=== PATIENT | male | born 1955 | race Caucasian/White ===

== ENCOUNTER 2017-06-18 21:35 | Inpatient (IN) | payer OTHER ==
[~2017-06-18] VITALS: Ht 175.3 cm; Wt 137.0 kg
--- NOTE | ~2017-06-18 | EKG ---
PATIENT: BE MUNOZ UNIT #: [id number] Ventricular Rate: 88 BPM Atrial Rate: 88 BPM P-R Interval: 166 ms QRS Duration: 104 ms Q-T Interval: 378 ms QTC Calculation(Bezet): 457 ms P [place]: 46 degrees Calculated R [place]: 97 degrees Calculated T [place]: 63 degrees Diagnosis Line: Normal sinus rhythm Diagnosis Line: Rightward axis Diagnosis Line: Septal infarct , age undetermined Diagnosis Line: Abnormal ECG Diagnosis Line: When compared with ECG of 18-JUN-2017 22:15, Diagnosis Line: (unconfirmed) Diagnosis Line: Significant changes have occurred Diagnosis Line: Confirmed by ANIA STERN MD ([id number]) on 06/19/2017 Diagnosis Line: 11:10:34 PM INTERPRETING MD: LEENA HUDSON
--- NOTE | ~2017-06-18 | CR72 ---
[facility] A Service of [facility] & [facility] RADIOLOGY TEXT RESULTS PATIENT: BE MUNOZ LOCATION: [place] [address]- : 57 UNIT #: [id number] AGE: [address]: Dorina Abraham MD SEX: M ORDER DR: [id number] [facility] [address] [place], [place] [address] [id number] I MR#: [id number] #: [id number] NAME: BE MUNOZ. : 1955 SEX: M STUDY DATE/TIME: 06/19/2017 3:10 UNIT: [facility] ROOM: [facility] STUDY DESCRIPTION: CR Chest Single View Portable Attending Physician: Dorina Abraham M.D. Ordering Physician: Lluvia Mcdermott M.D. Primary Care Physician: Melquiades Santa M.D. MEDICAL IMAGING REPORT This report is preliminary unless electronic signature is present EXAM Chest x-ray 06/19/2017 HISTORY 62-year-old male, hospital inpatient, status post respiratory failure with intubation yesterday. TECHNIQUE AP portable chest x-ray. FINDINGS Exam shows no change since yesterday. Endotracheal tube remains in good position. Marked chronic elevation right hemidiaphragm. Stable cardiomegaly. CABG. IMPRESSION Stable portable chest radiograph, unchanged since yesterday. ETT in good position. Dictated by... Jayden Ochoa M.D. THIS IS AN ELECTRONICALLY VERIFIED REPORT Jayden Ochoa M.D. at 06/19/2017 10:03 PM KAY/cirilo TD: 06/19/2017 09:31 JOB #: [id number] MEDICAL IMAGING REPORT Page 1 of 1 COPY
--- NOTE | ~2017-06-18 | CO ---
Unit #: [id number] #: [id number] Patient: BE MUNOZ [id number] [place] [address] [facility]. [place], [place] [address] [id number] I MR#: [id number] NAME: BE MUNOZ ROOM: [facility] Age: 62 Sex: M Admission Date: 06/19/2017 : 1955 Attending Physician: Dorina Abraham M.D. Primary Care Physician: Melquiades Santa M.D. Consultation Date: 06/19/2017 CONSULTATION REPORT JOB NOTE: VERIFY CC. CC: [facility]. REASON FOR CONSULTATION Status post arrest, mechanical ventilatory support. HISTORY OF PRESENT ILLNESS A 62-year-old gentleman, known to me from office, we are waiting for those office notes to review, who has COPD, chronic respiratory failure, and history of coronary artery disease. He apparently was at [facility] and suffered an PA, but at that time, his LV function apparently was normal. He also had marked hypercapnic hypoxemic respiratory failure and was seen by Dr. De La Cruz in the hospital. He apparently was in his usual state of health and then was found down and was basically a witnessed arrest. Bystander CPR was initiated. EMS arrived. He was found to have ventricular tachycardia. Shocked multiple times, actually presented to the emergency room, still in ventricular tachycardia. With further ACLS protocol, he had return of spontaneous circulation. He is hypotensive, appears to have severe anoxic brain injury and obviously cannot add to the history in the intensive care unit on the ventilator. PAST MEDICAL HISTORY Remarkable for coronary artery disease, hypertension, hyperlipidemia, COPD, chronic respiratory failure, remote colonic polyps. ALLERGIES No known medical allergies. MEDICATIONS At home, according to the EHR, aspirin, fish oil, Anoro 1 puff a day, Lipitor, Flomax, potassium, Imdur, Lasix, Norvasc, Toprol, Proscar, Plavix, Welchol. FAMILY HISTORY Coronary artery disease according to the EHR. SOCIAL HISTORY Reformed tobacco use. Rarely drinks beer. REVIEW OF SYSTEMS Unobtainable. PHYSICAL EXAMINATION GENERAL: Reveals a patient, who appears uncomfortable, myoclonic jerks, diaphoresis. Unit #: [id number] #: [id number] Patient: ALEXANDER,BE H VITAL SIGNS: He is afebrile. Pulse 92, respiratory rate is 24, blood pressure 135/72, 5 feet 9 inches, 302 pounds, BMI is 42. HEENT: Pupils are small, but not pinpoint. They do not react to my exam. Sclerae anicteric. Head is atraumatic. NECK: Appears supple. He is unresponsive. He has myoclonic jerks. CHEST: Equal breath sounds. No jose ramon wheeze or stridor. CARDIAC: Reveals a regular rate and rhythm. No pathologic murmur, rub, or gallop noted. ABDOMEN: Soft and nontender. No hepatomegaly or rebound. EXTREMITIES: Reveal no clubbing, cyanosis, or edema. No calf tenderness. SKIN: Clammy, somewhat cool. NEUROLOGIC: Unresponsive, myoclonic jerks. Doubt seizure activity. DIAGNOSTIC STUDIES LABORATORY RESULTS: Initial arterial blood gas; pH is 7.24, pCO2 of 55, pO2 of 197. He now has a pH of 7.31, pCO2 of 44, pO2 of 85 on assist control 20, breathing 26, tidal volume is 700, PEEP of 5, 60%. BUN is 27, creatinine is 2.4 which has increased from 1.4, potassium 5.3, and has been treated by Cardiology. Liver function tests mildly elevated. Troponin is greater than 73, BNP 221. INR was normal. White blood cell count is 23, hemoglobin is 14, platelet count is 261. Urinalysis; hematuria, no significant pyuria. IMAGING STUDIES: CT of head was read as unremarkable. Chest x-ray was remarkable for ET tube in adequate position, right hemidiaphragm elevation, which appears to be chronic, possibly some mild interstitial edema, but certainly no jose ramon alveolar edema. I was told that his LV function is severely depressed, but formal echo is pending. IMPRESSION 1. Status post cardiac arrest with prolonged cardiopulmonary resuscitation. 2. Severe anoxic brain injury. 3. Respiratory failure secondary to above. 4. Severe chronic obstructive pulmonary disease with chronic respiratory failure. 5. Apparent severe left ventricular dysfunction. 6. Atrial fibrillation. 7. Acute myocardial infarction. 8. Medical problems listed above. PLAN Mechanical ventilatory support. Neurology is seeing the patient currently and I will leave the decision for EEG monitoring to them. I suspect his jerks are myoclonic jerks and not seizures, but again we will defer EEG to Neurology. I have discussed with the family the severity of his disease. They clearly state he is not to be resuscitated again. They actually are thinking about terminal extubation. I would agree if the family wants to proceed with that. Dictated by... Lobo Beaver/morgan TD: 06/20/2017 08:08 JOB #: [id number] Unit #: [id number] #: [id number] Patient: BE MUNOZ CC: Lobo Palafox M.D. CONSULTATION REPORT Page 1 of 1 X Ty Su MD CONSULTATION REPORT
--- NOTE | ~2017-06-18 | CR72 ---
[facility] A Service of [facility] & [facility] RADIOLOGY TEXT RESULTS PATIENT: BE MUNOZ LOCATION: [place] [address] : 56 UNIT #: [id number] AGE: [address]: Dorina Abraham MD SEX: M ORDER DR: [id number] [facility] [address] [place], [place] [address] [id number] I MR#: [id number] Acc #: [id number] NAME: BE MUNOZ. : 1955 SEX: M STUDY DATE/TIME: 06/18/2017 22:12 UNIT: [facility] ROOM: [facility] STUDY DESCRIPTION: CR Chest Single View Portable Attending Physician: Dorina Abraham M.D. Ordering Physician: Tyler Lilly M.D. Primary Care Physician: Melquiades Santa M.D. MEDICAL IMAGING REPORT This report is preliminary unless electronic signature is present EXAM Frontal shoulder frontal chest 06/18/2017. INDICATIONS Cardiac arrest, tube placement. Symptoms began 20:46 hours tonight. History of congestive heart failure and hypertension. TECHNIQUE Frontal chest. COMPARISON Compared 06/30/2012. FINDINGS Postop changes of median sternotomy and bypass surgery of about 3.5 cm above the level of the hanna. The heart is enlarged. Chronic elevation of the right hemidiaphragm. Interstitial prominence throughout both lungs likely represents vascular congestion and interstitial edema. Trace fluid or atelectasis associated with the fissure on the right. There is no distinct pneumothorax. Chronic pleural thickening on the left. IMPRESSION 1. ET tube tip in good position about 3.5 cm above the level of the hanna. No pneumothorax. 2. Cardiomegaly and imaging features most likely reflecting vascular congestion and interstitial edema. 2. Chronic elevation of the right hemidiaphragm. Dictated by... Teodoro Michael M.D. THIS IS AN ELECTRONICALLY VERIFIED REPORT Teodoro Michael M.D. at 06/19/2017 11:[address] [facility] A Service of [facility] & [facility] RADIOLOGY TEXT RESULTS PATIENT: BE MUNOZ LOCATION: [facility]-23 : [birth year] UNIT #: [id number] AGE: [address]: Dorina Abraham MD SEX: M ORDER DR: Dion TD: 06/19/2017 09:58 JOB #: [id number] MEDICAL IMAGING REPORT Page 1 of 1 COPY
--- NOTE | ~2017-06-18 | EE ---
Unit #: [id number] #: [id number] Patient: BE MUNOZ [id number] [address] [address] [id number] I MR#: [id number] NAME: BE MUNOZ : 1955 SEX: M STUDY DATE/TIME: 06/19/2017 UNIT: [facility] ROOM: [facility] STUDY DESCRIPTION: EEG Attending Physician: Dorina Abraham M.D. Referring Physician: Lluvia Mcdermott M.D. Primary Care Physician: Melquiades Santa M.D. NEURODIAGNOSTICS REPORT EXAM EEG REASON FOR THE STUDY Jerking activity, anoxic, rule out seizures. EEG DESCRIPTION This is a portable, digitally recorded multi-montage adult EEG with leads placed according to the International 10-20 System. Hyperventilation and photic stimulation was not done. This EEG shows very low amplitude, very slow, probably about 3 to 4 Hz activity, with some characteristics of bursts suppression. Occasionally, faster frequencies and bursts were seen for about one to two seconds but, again, very low amplitude and then followed by significant depression. Nothing suggesting seizure, nothing suggesting status, nothing suggesting interictal discharges, nothing suggesting reactivity. IMPRESSION Abnormal EEG showing severe and diffuse slowing and low amplitude indicative of severe encephalopathy that is nonspecific but concern for significant hypoxic damage. Nothing suggesting seizure or status. Clinical correlation is recommended. Dictated by... Lobo Johnson/cirilo TD: 06/21/2017 07:08 JOB #: [id number] Unit #: [id number] #: [id number] Patient: BE MUNOZ NEURODIAGNOSTICS REPORT Page 1 of 1 X Seng Pfeiffer MD NEURODIAGNOSTICS REPORT
--- NOTE | ~2017-06-18 | CO ---
Unit #: [id number] #: [id number] Patient: BE MUNOZ [id number] [facility] [address] [place], [place] [address] [id number] I MR#: [id number] NAME: BE MUNOZ ROOM: [facility] Age: 62 Sex: M Admission Date: 06/19/2017 : 1955 Attending Physician: Dorina Abraham M.D. Primary Care Physician: Melquiades Santa M.D. Consultation Date: 06/19/2017 CONSULTATION REPORT PRIMARY CARE PHYSICIAN Melquiades Santa M.D. REASON FOR CONSULTATION Possible hypoxic and anoxic encephalopathy. PATIENT IDENTIFICATION This is a 62-year-old apparently right-handed, white male, who was evaluated in room ICU 23 at [facility]. SOURCE OF INFORMATION The medical records and evaluation done by Dr. Mcdermott. PROBLEM LIST 1. Coronary artery disease, status post four vessel CABG in the past. 2. Congestive heart failure. 3. Essential hypertension. 4. Hyperlipidemia. 5. Coronary artery disease. 6. DJD. 7. Polyps removed from the colon in 02/2014. 8. Open cholecystectomy. 9. Obesity. 10. Unclear about but there is a possibility of sleep apnea. HISTORY OF PRESENT ILLNESS This 62-year-old gentleman who was at home in his usual state of health and about 9:00 p.m., the patient's heard grunting and gurgling sounds, she ran into the room and he was unresponsive. EMS was called and bystander CPR was started. EMS arrived in about 5 minutes as per the records. He was in ventricular tachycardia. He was shocked multiple times in the field. He was given several amps of epi and amiodarone. He was brought to the emergency room with V-tach and VFib. His time of arrival is documented as 9:42 p.m. He was shocked again x2. He was given amiodarone in form of a drip. He has been unresponsive with some myoclonic type activity. No seizure-like activity. No purposeful movement. He was having decerebrate posturing and that has been going on. EEG was ordered, but there is nothing suggesting seizure or status. I talked to Dr. Su and he is concerned that this is a poor outcome. No prior history of seizures or stroke. No change in medication. Unit #: [id number] #: [id number] Patient: BE MUNOZ No infection or other issues. PAST MEDICAL HISTORY As discussed above. PAST SURGICAL HISTORY As discussed above. ALLERGIES None. HOME MEDICATIONS Aspirin, fish oil, vitamin D, Anoro Ellipta, Lipitor, Flomax, K-Dur, Imdur, Lasix, Norvasc, finasteride, Toprol-XL, Plavix, Welchol. FAMILY HISTORY Reviewed, nothing suggesting any neurologic issue, but there is coronary artery disease. SOCIAL HISTORY The patient is , lives with his and son. Remote history of tobacco use and seldom drinks. REVIEW OF SYSTEMS Because of his present neurologic state, review of systems could not be obtained. PHYSICAL EXAMINATION VITAL SIGNS: Temperature 98.2, pulse 92, respirations 24, blood pressure 135/72, O2 saturations were 99% to 100%. He is intubated. Weight of 302 pounds. BMI was 44. NEUROLOGIC: The patient is essentially in coma. He is posturing possible [place] coma Scale of 5 and he is intubated. He is not following commands. He is having what looks like spontaneous myoclonus and startle myoclonus. Cranial nerve examination demonstrates no respond to threats. Corneas are questionable because of his myoclonus. No doll's eyes. Pupil reactivity, I did not see any facial asymmetry. He is having myoclonus. Hearing is questionable. Tongue was midline. I could not visualize the oropharynx or uvula. Head turning was not seen, otherwise spontaneous. Motor examination, he is having what looks like decerebrate posturing right now, especially in the upper extremities. Sensory examination, only response is posturing. I could not get reflexes. Toes are mute. DIAGNOSTIC STUDIES IMAGING STUDIES: CT head was reported as unremarkable. LABORATORY RESULTS: Random glucose 202 to 266; BUN is 27 and creatinine is 2.4, this went up from 17 and 1.4; potassium was 5.3; calcium was 8.1. AST has gone up from 174 to 445. ALT went up from 155 to 195. CK is 2841. Troponin was 73 or greater than 73. BNP was 221. White count was 23, H and H of 14.5 and 47.7, platelet count was 261. Urinalysis showed some rbc's. 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 I am concerned about poor prognosis, but too early to say otherwise, it is prolonged down time and several rounds of shocking and epi points to rather prolonged event, and he definitely looks hypoxic and anoxic with startle and spontaneous myoclonus. These do not look like seizure, so I will give him time. I will talk to the family. I have talked to the team already and we will see how things go. I will keep you informed. I am concerned about poor prognosis, but time will tell and we will follow and treat as accordingly. Call me for any other questions, issues, or concerns. Dictated by... Lobo Johnson/morgan TD: 06/20/2017 06:23 JOB #: [id number] CONSULTATION REPORT Page 1 of 1 X Seng Pfeiffer MD CONSULTATION REPORT
--- NOTE | ~2017-06-18 | CO ---
Unit #: [id number] #: [id number] Patient: BE MUNOZ [id number] [address] [place], [place] [address] [id number] I MR#: [id number] NAME: BE MUNOZ ROOM: [facility] Age: 62 Sex: M Admission Date: 06/19/2017 : 1955 Attending Physician: Dorina Abraham M.D. Primary Care Physician: Melquiades Santa M.D. CONSULTATION REPORT JOB NOTE: CC: PRIMARY CARE PHYSICIAN, [facility]. REASON FOR CONSULTATION Elevated troponin. HISTORY OF PRESENT ILLNESS This is a 62-year-old white male, who is known to cardiovascular associates, who has a history of coronary artery bypass graft x4 in 1995. In 2011, he had a PCI with stent placement from unknown vessel. No details available. He has hypertension, hyperlipidemia, and chronic systolic heart failure. He was admitted in 12/2015 for an elevated troponin and respiratory failure. He is known to have COPD and is on home oxygen. At that time, the patient had an echocardiogram done, where he showed improvement of his ejection fraction to 50% to 55%. He was followed by Dr. Nieto at discharge. The patient is currently intubated and is unable to provide a history. According to the records, the patient lives at home and his heard him gurgling and grunting about 9:00 p.m. When she arrived in the room, he was unresponsive. EMS was dispatched and the patient was given CPR by his . When EMS arrived, he was in ventricular tachycardia that progressed to ventricular fibrillation. He was shocked several times and started on amiodarone bolus and given 6 amps of epinephrine. When he came to the emergency room, CPR was still ongoing. He was subsequently intubated. He was hypotensive with blood pressure in the 70s and was started on James-Synephrine drip. His initial troponin was 0.79, but progressed to 27.5. BNP 221. His chest x-ray shows interstitial edema. Bedside echocardiogram shows an ejection fraction of less than 10%. PAST MEDICAL HISTORY 1. Coronary artery bypass graft x4 in 1995. 2. Chronic systolic heart failure. 3. PCI and stent in 2011, no details available. 4. 2D echocardiogram on 12/2015 showed an ejection fraction of 50% to 55% with right ventricle mildly enlarged. 5. Hypertension. 6. Hyperlipidemia. 7. COPD, on home O2. 8. Obstructive sleep apnea. 9. BPH. 10. Obesity. 11. Former smoker. Unit #: [id number] #: [id number] Patient: BE MUNOZ PAST SURGICAL HISTORY 1. Coronary artery bypass graft. 2. Knee surgery. SOCIAL HISTORY The patient is . He quit smoking more than 20 years ago. No illicit drug or alcohol use. FAMILY HISTORY According to records from [facility], both parents had heart disease. ALLERGIES No known drug allergies. HOME MEDICATIONS Aspirin 81 mg daily, fish oil 300 mg b.i.d., vitamin D 1000 units daily, Ellipta one puff daily, Lipitor 20 mg daily, Flomax 0.80 mg q.h.s., potassium chloride 8 mEq b.i.d., Imdur 60 mg daily, furosemide 40 mg daily, Norvasc 5 mg daily, Proscar 5 mg daily, metoprolol succinate 100 mg daily, Plavix 75 mg daily, and WelChol 3 tabs b.i.d. REVIEW OF SYSTEMS Unable to obtain, because the patient is currently intubated and sedated. PHYSICAL EXAMINATION VITAL SIGNS: Blood pressure 79/49, heart rate 85, temperature 98.2. GENERAL: This is a tall 62-year-old mildly obese, white male, who is currently intubated and sedated. NEUROLOGIC: Pupils are pinpoint. He is noted to have some tonic-clonic activity to his left face. NECK: Trachea is midline. No thyromegaly or lymphadenopathy. No jugular venous distention. HEART: S1 and S2. Heart sounds are normal. No murmurs, rubs, or clicks. Regular rate and rhythm. LUNGS: With diminished breath sounds in both lungs without rales, rhonchi, or wheezing. ABDOMEN: Soft and obese with absent bowel sounds. EXTREMITIES: Without leg edema. SKIN: Pale and dry. DIAGNOSTIC STUDIES LABORATORY RESULTS: Sodium 141, potassium 3.5, BUN 17, creatinine 1.4. AST 174, ALT 155. Troponin 0.79 to 27.5. White count 23.0, hemoglobin 14.5, hematocrit 44.7, and platelet count 261. IMAGING STUDIES: Chest x-ray noted for cardiomegaly. There is interstitial prominence in both lungs likely represents vascular congestion and interstitial edema. CARDIOVASCULAR STUDIES: EKG shows normal sinus rhythm, rate of 88 beats per minute with rightward axis deviation, questionable old septal infarct. IMPRESSION 1. Status post prolonged ventricular tachycardia/fibrillation resuscitated arrest. 2. Acute non-ST elevation myocardial infarction. 3. Acute on chronic systolic heart failure with reduced ejection fraction of 10%. Unit #: [id number] #: [id number] Patient: BE MUNOZ 4. History of coronary artery bypass graft x4 in 1995 with percutaneous coronary intervention and stent in 2011. 5. Hypotension. 6. Chronic obstructive pulmonary disease. PLAN 1. Cardiology was consulted for elevated troponin. We will start the patient on aspirin. 2. No beta-marcell or SHIRLEY inhibitor for now, because of hypotension. 3. Repeat troponin and EKG. 4. Continue supportive measures. 5. We will discuss with Dr. Pfeiffer about the patient's mental status. If his mental status improved, he may need a cardiac catheterization. 6. Continue James-Synephrine for blood pressure support. 7. On amiodarone drip to prevent further arrhythmias. 8. The patient's prognosis is poor. 9. Lipid profile will be obtained, not able to give statin at this time because of n.p.o. status. 10. We will follow the patient with you. Thank you for allowing us to assist with this patient's care. Dictated by... Zaid Arceo/morgan TD: 06/20/2017 06:22 JOB #: [id number] CONSULTATION REPORT Page 1 of 1 X Roosevelt Thakkar APRN X CONSULTATION REPORT
--- NOTE | ~2017-06-18 | EKG ---
PATIENT: BE MUNOZ UNIT #: [id number] Ventricular Rate: 158 BPM Atrial Rate: 158 BPM QRS Duration: 164 ms Q-T Interval: 304 ms QTC Calculation(Bezet): 492 ms Calculated R [place]: -110 degrees Calculated T [place]: 84 degrees Diagnosis Line: Wide QRS tachycardia with Premature Diagnosis Line: supraventricular complexes and with occasional Diagnosis Line: Premature ventricular complexes and Fusion Diagnosis Line: complexes Diagnosis Line: ACUTE IA / STEMI Diagnosis Line: Left axis deviation Diagnosis Line: Inferior infarct , age undetermined Diagnosis Line: Abnormal ECG Diagnosis Line: No previous ECGs available Diagnosis Line: Confirmed by ANIA STERN MD ([id number]) on 06/19/2017 Diagnosis Line: 11:03:44 PM INTERPRETING MD: LEENA HUDSON
--- NOTE | ~2017-06-18 | HP ---
Unit #: [id number] #: [id number] Patient: BE MUNOZ [id number] [facility] [address]. [place], [place] [address] [id number] I MR#: [id number] NAME: BE MUNOZ ROOM: CIC3 Age: 62 Sex: M Admission Date: 06/19/2017 : 1955 Attending Physician: Lluvia Mcdermott M.D. Primary Care Physician: Melquiades Santa M.D. HISTORY AND PHYSICAL CHIEF COMPLAINT Resuscitated V-tach, V fib arrest. HISTORY This 62-year-old male with known CAD in congestive heart failure with O2 dependent COPD and hypertension, is admitted as a resuscitated arrest. Family states the patient was in his usual state of health until about 9:00 p.m. heard the patient make grunting sounds and gurgling. She ran into the room and he was unresponsive. She called EMS, and started bystander CPR while the patient was in a recliner. EMS arrived in five minutes. The patient was in ventricular tachycardiac. He was shocked multiple times in the field, I'm told five times, given 6 amp of epinephrine, 300 mg bolus of amiodarone, then another 150 mg of amiodarone. He was brought into the emergency department in V-tach, V fib. He was given further epinephrine, shocked x2 more and given further amiodarone in the form of a drip. He then briefly went into atrial fibrillation and did become hypotensive, requiring James-Synephrine. He now is what looks to be in a normal sinus rhythm on an amiodarone drip. His James is being weaned down. 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 He was given some Versed in addition to the above, call was made to cardiology and pulmonary. Per pulmonary, patient is not a hypothermia candidate. Initial troponin is mildly elevated. PAST MEDICAL HISTORY 1. CAD, status post four vessel CABG in 1995. Patient underwent PCI and stent by Dr. Queen in 2011 at [facility]. He was last admitted to [facility] 12/2015 for congestive heart failure. Will obtain records. 2. Essential hypertension. 3. Hyperlipidemia. 4. COPD on home oxygen. 5. DJD. 6. Polyps removed from the colon 02/2014. 7. Open cholecystectomy. ALLERGIES No known drug allergies. HOME MEDICATIONS Aspirin 81 mg daily; fish oil 300 mg b.i.d.; vitamin D 1,000 units daily; Unit #: [id number] #: [id number] Patient: BE MUNOZ Anoro Ellipta 62.5/25 one puff daily; Lipitor 20 mg daily; Flomax 0.8 mg q.h.s.; potassium 8 mEq b.i.d.; Imdur 60 mg daily; Lasix 40 mg b.i.d.; Norvasc 5 mg daily; Toprol XL 100 mg daily; Proscar 5 mg daily; Plavix 75 mg daily; Welchol 3 tablets twice a day. FAMILY HISTORY CAD. SOCIAL HISTORY The patient lives with his and son. Remote history of tobacco use but seldom drinks beer. REVIEW OF SYSTEMS Impossible to obtain as patient currently is orally intubated on a ventilator. 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 CURRENT VITAL SIGNS: Blood pressure is 108/93 on James-Synephrine, O2 saturation is 100% on FIO2 of 100%, heart rate of 93. HEENT: Eyes - pupils are constricted. Negative corneals. Negative dolls. Patient is orally intubated. NECK: Supple without adenopathy. CHEST: Clear. CARDIAC: Normal S1 and S2 without definite murmur. ABDOMEN: Bowel sounds are not present, abdomen is obese, nontender. No hepatosplenomegaly or masses. Right upper quadrant scar noted. EXTREMITIES: Very mild edema. Pedal pulses are diminished. No ulcers on the feet. NEUROLOGIC: Patient has decerebrate posturing. He has what I believe is startle myoclonus on exam. His pupils are constricted. He is breathing above the ventilator but has no corneals or doll signs. DIAGNOSTIC STUDIES ADMISSION LABS: Hematocrit is 43.1, white blood count is 19.1, normal platelet count. Initial troponin 0.79. Coags are normal. SMA 12 glucose is 266, magnesium is pending, albumin is 3.4, AST 174, ALT 155. ABG - pH 7.24, pCO2 55, pO2 197, O2 saturation 96% on a tidal volume 650, AC 18, PEEP of 5, FIO2 100%. IMAGING STUDIES: Chest x-ray - ET tube is in good position. Evidence of some congestive heart failure noted. CARDIOLOGY STUDIES: Initial EKG shows wide QRS tachycardia. Probable this is V-tach with a right bundle branch block, Qs noted inferiorly. Current EKG - A fib rate 120, intraventricular conduction delay. There is some ST depression noted perhaps in lead 1 to V4 through V6. ASSESSMENT 1. Resuscitated V-tach and V fib arrest. 2. Coma. 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 3. CAD, status post CABG, PCI, and stent with history of congestive heart failure. Evidence of mild CHF noted on chest x-ray, EKG and troponin indicative of non ST elevation SD. 4. COPD on home oxygen. 5. Patient is hypotensive post arrest but James-Synephrine is being weaned Unit #: [id number] #: [id number] Patient: BE MUNOZ off. 6. BPH. 7. Hyperlipidemia. 8. Acute hypoxic hypercapnic respiratory failure. PLANS 1. Continue amiodarone drip, increase aspirin. Obtain stat head CT. If head CT is negative will start a heparin drip. Cardiology was called and will be seeing the patient in the morning. I will ask for old records to be obtained, obtain repeat EKG and cardiac enzymes. 2. Pulmonary consultation. Call was made to Dr. Gilmore. I have asked for a repeat ABG now and chest x-ray in the morning. Dr. Gilmore has given orders for sedation as well. Patient is not a hypothermia candidate per pulmonary. 3. Consult neurology and obtain an EEG. I believe patient likely has startle myoclonus but will give some doses of Keppra until sorted out. Check a stat head CT. 4. Wean James-Synephrine off. Will restart beta-blockers when blood pressure stabilizes. 5. DVT and gastritis prophylaxis. 6. Obtain urinalysis. 7. Case was discussed with family. 8. Prognosis is guarded. 9. Critical care time spent in evaluating this patient was 45 minutes. 1. Dictated by Lluvia Mcdermott M.D. AML/ts TD: 06/19/2017 05:48 JOB #: [id number] CC: Catalina Good M.D. HISTORY AND PHYSICAL Page 1 of 1 X Lluvia Mcdermott MD HISTORY AND PHYSICAL
--- NOTE | ~2017-06-18 | DS ---
Unit #: [id number] #: [id number] Patient: BE MUNOZ [id number] [address] [address] [id number] I MR#: [id number] NAME: BE MUNOZ ROOM: CICCU3 Age: 62 Sex: M Admission Date: 06/19/2017 : 1955 Discharge Date: 06/20/2017 Attending Physician: Dorina Abraham M.D. Primary Care Physician: Melquiades Santa M.D. DISCHARGE SUMMARY DISCHARGE/ SUMMARY DATE OF 06/20/2017, approximately 12:30 a.m. REASON FOR ADMISSION Resuscitated arrest. HISTORY OF PRESENT ILLNESS/HOSPITAL COURSE This patient is a very pleasant 62-year-old male with a prior history of coronary artery disease, heart failure, O2 dependent COPD and hypertension who was admitted secondary to resuscitated arrest. Please see H and P for complete details. Essentially, patient did suffer from significant anoxic encephalopathy on admission. He was minimally responsive. Subsequently, he was intubated while evaluated in the emergency room and placed in the ICU for ongoing care. Consultations were placed to the cath lab technologist, Dr. Su, as well as to cardiology, Dr. Harris. Unfortunately, the patient's initial prognosis was very poor. Discussions were subsequently discussed with patient's family as well as initiation and consideration for possible withdrawal of care. Family members, at approximately 2300 on 06/19/2017, stated they wished to withdraw care. Patient was terminally extubated at approximately 2300 and subsequently shortly thereafter. Unfortunately, his prognosis initially was quite poor secondary to increased downtown from resuscitated arrest. FINAL DISCHARGE DIAGNOSES 1. Acute cardiopulmonary arrest. 2. Ventricular tachycardia/ventricular fibrillation arrest. 3. Anoxic encephalopathy. 4. Essential hypertension. 5. Coronary artery disease. 6. History of heart failure. 7. Hyperlipidemia. 8. End stage chronic obstructive pulmonary disease. 9. Chronic osteoarthritis. Dictated by... Dorina Abraham M.D. ISN/cirilo Unit #: [id number] #: [id number] Patient: BE MUNOZ TD: 06/21/2017 10:49 JOB #: [id number] DISCHARGE SUMMARY Page 1 of 1 X Dorina Abraham MD DISCHARGE SUMMARY
--- NOTE | ~2017-06-18 | A ---
[facility] Nutrition Therapy DATE: 06/19/17 Patient: BE Ho ALEXANDER Physician: LORNA Address: [address] [place] [address] Room/Bed: [address], Zip: [place] [address] Admit Date: 06/19/17 Date of : [birth year] Height: 5 9 Weight: 302 137 NUTRITIONAL ASSESSMENT: REASON: NPO, intubated, ?high BMI documentation Admitting dx: 62 y/o male s/p full arrest with CPR, down 50 minutes PMH: CAD s/p stent + CABG, CHF, HTN, HLD, DJD, COPD on home O2, lorenzo Anthropometrics: Ht: 69", Wt: 113.4 kg vs 137 kg (avg = 125 kg), BMI: 36.9 vs 44.6 (stage II vs stage III obese), IBW: 72.7 kg Labs: K+ 5.3, glucose 202, POC 156-183, BUN 27, creat 2.4, AST 445, ALT 195, GFR 28.1, Mg WNL, no Phos available Meds: keppra, pepcid, lavelle (weaning), NSIVF @ 100 ml/hr, propofol off at this time I/O & Bowel function: No shift assessment available yet Skin Integrity: No shift assessment available yet Estimated Nutrition Needs: 2474-3137 kcals/day (15-18 kcals/kg average weights) 109-145 g protein/day (1.5-2.0 g/kg IBW) Fluids per MD Assessment: Chart reviewed, events noted. See admitting dx and PMH as stated above. Patient currently intubated, sedation off at this time, on 1 pressor being weaned down. He is unresponsive with no reflexes at this time, no urine output per RN. He is not appropriate for RD interview at this time. See recs below, will follow. Dx: Inadequate energy intake r/t nutrition not yet initiated, vent dependence AEB NPO, need for EN. Intervention: EN recs as stated below Monitoring, Evaluation and Goals: 1. EN consistent with estimated nutritional needs. 2. Improvement in labs (BUN, creat, glucose < 200, lytes). Monitor: per protocol, criteria to determine if above goals met Recommendations: [facility] Nutrition Therapy DATE: 06/19/17 Patient: BE MUNOZ Physician: LORNA Address: [address] [place] [address] Room/Bed: [address], Zip: [place] [address] Admit Date: 06/19/17 Date of : [birth year] Height: 5 9 Weight: 302 137 1. If consistent with patients goals of care and once medically feasible place DHT and start enteral nutrition with Nepro @ 20 ml/hr, increasing by 10 ml q 6 hours until goal rate of 45 ml/hr is reached. Please order 30 ml Prostat supplement to be given via tube BID to help meet protein needs. This nutrition regimen will provide 1220 ml, 2144 kcals, 118 g protein and 788 ml water. Add free water flushes per MD recs once at goal rate and hold liquid IVF. 2. Suggest checking Phos level. 3. Daily weights. RD will follow hospital course Moderate-severe nutrition risk Respectfully, Cassie Gonzalez, MARIKA, LD [employer] [facility] cc: client file
--- NOTE | ~2017-06-18 | EKG ---
PATIENT: BE MUNOZ UNIT #: [id number] Ventricular Rate: 118 BPM Atrial Rate: 129 BPM QRS Duration: 132 ms Q-T Interval: 362 ms QTC Calculation(Bezet): 507 ms Calculated R Willard: 105 degrees Calculated T Willard: -157 degrees Diagnosis Line: Atrial fibrillation with rapid ventricular Diagnosis Line: response with premature ventricular or aberrantly Diagnosis Line: conducted complexes Diagnosis Line: Rightward axis Diagnosis Line: Non-specific intra-ventricular conduction block Diagnosis Line: Nonspecific ST and T wave abnormality Diagnosis Line: Abnormal ECG Diagnosis Line: When compared with ECG of 18-JUN-2017 21:56, Diagnosis Line: (unconfirmed) Diagnosis Line: Atrial fibrillation has replaced Wide QRS Diagnosis Line: tachycardia Diagnosis Line: Confirmed by ANIA STERN MD ([id number]) on 06/19/2017 Diagnosis Line: 11:05:01 PM INTERPRETING MD: LEENA HUDSON
--- NOTE | ~2017-06-18 | CT71 ---
[facility] A Service of [facility] RADIOLOGY TEXT RESULTS PATIENT: BE MUNOZ LOCATION: [address] : [birth year] UNIT #: [id number] AGE: [address]: Dorina Abraham MD SEX: M ORDER DR: [id number] [facility] [address]. [place], [place] [address] [id number] I MR#: [id number] Acc #: [id number] NAME: BE MUNOZ. : 1955 SEX: M STUDY DATE/TIME: 06/19/2017 1:38 UNIT: [facility] ROOM: [facility] STUDY DESCRIPTION: CT Head Wo Contrast Attending Physician: Dorina Abraham M.D. Ordering Physician: Tyler Lilly M.D. Primary Care Physician: Melquiades Santa M.D. MEDICAL IMAGING REPORT This report is preliminary unless electronic signature is present EXAM CT head, noncontrast, 06/19/2017 HISTORY 62-year-old male status post cardiopulmonary arrest with resuscitation and intubation several hours prior. Unresponsive. Evaluate for intracranial abnormality. TECHNIQUE CT examination of the head without IV contrast. This CT exam was performed with one or more of the following radiation dose reduction techniques: automatic exposure control, adjustment of mA and/or kV according to patient size, and iterative reconstruction. FINDINGS Some of the images are limited by patient motion artifact. Portions of the exam were repeated. No acute intracranial abnormality is identified. No evidence of intracranial hemorrhage, mass, mass effect, cerebral edema or hydrocephalus. IMPRESSION Negative examination. No acute intracranial abnormalities identified. Mildly motion limited study. Dictated by... Jayden Ochoa M.D. THIS IS AN ELECTRONICALLY VERIFIED REPORT Jayden Ochoa M.D. at 06/19/2017 10:03 PM KAY/clint [facility] A Service of [facility] RADIOLOGY TEXT RESULTS PATIENT: EB MUNOZ LOCATION: [address] : [birth year] UNIT #: [id number] AGE: [address]: Dorina Abraham MD SEX: M ORDER DR: TD: 06/19/2017 10:37 JOB #: [id number] MEDICAL IMAGING REPORT Page 1 of 1 COPY
[~2017-06-18 21:35] MED LIST: ASPIRIN PO; BENAZEPRIL HCL40 MG PO; FINASTERIDE5 MG PO; FISH OIL 1,0001 CAP PO; FLOMAX0.4 M1 PO; FOLIC ACID PO; FUROSEMIDE40 MG PO; IMDUR-ER60 M1 PO; KCL PO; LOPID600 MG PO; NORVASC PO; PLAVIX PO; TOPROL XL PO; WELCHOL625 MG PO
[2017-06-18 22:31] LABS: BASOPHIL# 0.1 X10e3 (0-0.3); BASOPHIL% 0.8 % (0-2.5); EOSINOPHIL# 0.5 X10e3 (0-0.7); EOSINOPHIL% 2.8 % (0.0-7.0); HEMATOCRIT 43.1 % (38.0-50.0); MEAN CELL VOLUME 93.1 FL (83-96); MEAN CORPUSCULAR HEMOGLOBIN 30.3 PG (28-34); MEAN CORPUSCULAR HGB CONC 32.5 g/dL (30-36); MEAN PLATELET VOLUME 8.2 FL (6.5-11.5); MONOCYTE# 0.5 X10e3 (0-1.0); MONOCYTE% 2.8 % (3.0-12.0); NEUTROPHIL# 12.9 X10e3 (1.5-7.1); NEUTROPHIL% 67.6 % (40-75); PLATELET COUNT 212 X10e3 (140-420); RED BLOOD COUNT 4.63 X10e (3.90-5.60); RED CELL DISTRIBUTION WIDTH 14.5 % (11.0-15.5); WHITE BLOOD COUNT 19.1 X10e3 (4.0-10.5)
[2017-06-18 22:32] LABS: DIFF IND YES
[2017-06-18 22:32] LABS: POC - CKMB 21.5 ng/mL (0.0-7.9); POC - TROPONIN 0.79 ng/mL (<=0.05)
[2017-06-18 22:43] LABS: PARTIAL THROMBOPLASTIN TIME 24.3 SECONDS (23.5-31.3); PROTHROMBIN TIME (PATIENT) 11.2 SECONDS (10.0-11.7)
[2017-06-18 22:44] LABS: ARTERIAL BLOOD GAS CARBOXY HB 2.8 %sat (0.0-9.0); ARTERIAL BLOOD GAS HCO3 23.5 mmol/L; ARTERIAL BLOOD GAS MET HB 0.8 %sat (0.0-2.0)
[2017-06-18 22:45] LABS: ARTERIAL BLOOD GAS ART SITE LEFT BRACHIAL; ARTERIAL BLOOD GAS DELIVERY VENT; ARTERIAL BLOOD GAS VENT MODE AC; ARTERIAL DRAW? YES
[2017-06-18 22:55] LABS: ALBUMIN SERUM 3.4 g/dL (3.5-5.0); BILIRUBIN, DIRECT 0.2 mg/dL (0.0-0.2); BILIRUBIN,INDIRECT 0.2 mg/dL (0.0-0.9); BILIRUBIN,TOTAL 0.4 mg/dL (0.2-2.0); BUN/CREATININE RATIO 12.14; CALCIUM SERUM 8.1 mg/dL (8.4-10.2); CREATININE SERUM 1.4 mg/dL (0.6-1.4); GLOM FILT RATE Estimated 53.9 mL/min (>60); PLATELET ESTIMATE NORMAL (NORMAL); POTASSIUM 3.5 mmol/L (3.5-5.1); PROTEIN TOTAL SERUM 6.4 g/dL (6.0-8.3)
[2017-06-18 22:56] LABS: POIKILOCYTOSIS SL; TEAR DROP CELLS PRESENT
[2017-06-18] MEDS ORDERED: FISH OIL300 MG PO (23:22)
[2017-06-18] MEDS ORDERED: LIPITOR20 MG PO (23:22)
[2017-06-18] MEDS ORDERED: VITAMIN D1000 UNIT PO (23:22)
[2017-06-18] MEDS ORDERED: ANORO ELLIPTA1 EACH INH (23:22)
[2017-06-18] MEDS ORDERED: K-TAB ER8 MEQ PO (23:23)
[2017-06-18] MEDS ORDERED: FLOMAX0.4 M1 PO (23:23)
[2017-06-18] MEDS ORDERED: LASIX PO (23:24)
[2017-06-18] MEDS ORDERED: IMDUR-ER60 M1 PO (23:24)
[2017-06-18] MEDS ORDERED: FINASTERIDE5 M1 PO (23:25)
[2017-06-18] MEDS ORDERED: NORVASC PO (23:25)
[2017-06-18] MEDS ORDERED: CLOPIDOGREL75 MG PO (23:26)
[2017-06-18] MEDS ORDERED: WELCHOL625 M1 PO (23:26)
[2017-06-18] MEDS ORDERED: TOPROL XL100 MG PO (23:26)
[2017-06-19 00:11] LABS: POC - CKMB >80.0 ng/mL (0.0-7.9)
[2017-06-19 01:03] LABS: URINE SOURCE CATH
[2017-06-19 01:04] LABS: ARTERIAL BLOOD GAS CARBOXY HB 1.3 %sat (0.0-9.0); ARTERIAL BLOOD GAS HCO3 25.4 mmol/L; ARTERIAL BLOOD GAS MET HB 0.8 %sat (0.0-2.0); ARTERIAL BLOOD GAS PCO2 54.1 mmHg (35.0-45.0)
[2017-06-19 01:05] LABS: ARTERIAL BLOOD GAS ALLEN TEST NORMAL; ARTERIAL BLOOD GAS ART SITE LEFT RADIAL; ARTERIAL BLOOD GAS DELIVERY VENT; ARTERIAL BLOOD GAS VENT MODE AC; ARTERIAL DRAW? YES
[2017-06-19 01:06] LABS: URINE APPEARANCE CLEAR; URINE BILIRUBIN NEG (NEG); URINE BLOOD 2+ (NEG); URINE COLOR YELLOW; URINE GLUCOSE NEG (NEG); URINE KETONE TRACE (NEG); URINE LEUKOCYTE ESTERASE NEG (NEG); URINE NITRATE NEG (NEG); URINE PROTEIN NEG (NEG); URINE SPECIFIC GRAVITY 1.025 (1.003-1.035); URINE UROBILINOGEN 0.2 MG/DL (NEG)
[2017-06-19 01:09] LABS: URBCS1 AUWI 100-200 /[HPF] (0-2); URINE BACTERIA AUWI NEG (NEGATIVE); URINE SQUAMOUS EPITHELIAL CELL NONE SEEN /[HPF]; UWBCS1 AUWI 0-2 (0-5)
[2017-06-19 01:21] LABS: CULTURE INDICATED? NO
[2017-06-19 04:26] LABS: ARTERIAL BLD GAS O2 SATURATION 95.3 % (90.0-100.0); ARTERIAL BLOOD GAS CARBOXY HB 0.9 %sat (0.0-9.0); ARTERIAL BLOOD GAS HCO3 22.8 mmol/L; ARTERIAL BLOOD GAS MET HB 0.5 %sat (0.0-2.0); ARTERIAL BLOOD GAS PCO2 44.4 mmHg (35.0-45.0); ARTERIAL BLOOD GAS PO2 84.9 mmHg (80.0-100); ARTERIAL BLOOD GAS pH 7.319 (7.350-7.450)
[2017-06-19 04:34] LABS: ARTERIAL BLOOD GAS ALLEN TEST NORMAL; ARTERIAL BLOOD GAS ART SITE LEFT RADIAL; ARTERIAL BLOOD GAS DELIVERY VENT; ARTERIAL BLOOD GAS VENT MODE A/C; ARTERIAL DRAW? YES
[2017-06-19 07:05] LABS: BASOPHIL% 0.2 % (0-2.5); DIFF IND NO; EOSINOPHIL% 0.1 % (0.0-7.0); HEMATOCRIT 44.7 % (38.0-50.0); HEMOGLOBIN 14.5 gm/dL (13.0-16.0); LYMPHOCYTE# 0.9 X10e3 (1.0-3.5); LYMPHOCYTE% 3.8 % (17.0-45.0); MEAN CELL VOLUME 91.7 FL (83-96); MEAN CORPUSCULAR HEMOGLOBIN 29.8 PG (28-34); MEAN CORPUSCULAR HGB CONC 32.5 g/dL (30-36); MEAN PLATELET VOLUME 8.2 FL (6.5-11.5); MONOCYTE# 1.1 X10e3 (0-1.0); MONOCYTE% 4.6 % (3.0-12.0); NEUTROPHIL% 91.3 % (40-75); PLATELET COUNT 261 X10e3 (140-420); RED BLOOD COUNT 4.88 X10e (3.90-5.60); RED CELL DISTRIBUTION WIDTH 14.8 % (11.0-15.5)
[2017-06-19 07:47] LABS: CK TOTAL 2841 IU/L (36-174)
[2017-06-19 08:14] LABS: MB >300.0 ng/ml
[2017-06-19 08:40] LABS: CALCIUM SERUM 8.1 mg/dL (8.4-10.2)
[2017-06-19 08:42] LABS: ALBUMIN SERUM 3.7 g/dL (3.5-5.0); BILIRUBIN,TOTAL 1.1 mg/dL (0.2-2.0); BUN/CREATININE RATIO 11.25; CREATININE SERUM 2.4 mg/dL (0.6-1.4); GLOM FILT RATE Estimated 28.1 mL/min (>60); POTASSIUM 5.3 mmol/L (3.5-5.1); PROTEIN TOTAL SERUM 6.9 g/dL (6.0-8.3)
[2017-06-19 11:41] LABS: CHOLESTEROL 124 mg/dL (0-200); HDL CHOLESTEROL 37 mg/dL (29-75); LDL CHOLESTEROL 70 mg/dL ([, -130]); LDL/HDL RATIO 2 RATIO (0-4); TRIGLYCERIDES 87 mg/dL (10-160)
[2017-06-19 12:50] LABS: CK TOTAL 2398 IU/L (36-174)
[2017-06-19 13:11] LABS: MB >300.0 ng/ml
[2017-06-19 17:21] LABS: PROTHROMBIN TIME (PATIENT) 11.3 SECONDS (10.0-11.7)
== END 2017-06-20 00:15 | disposition expired | DRG 208 ==
LOC: CED 21:35 → CEDOF 06-19 00:06 → CED 06-19 00:06 → CEDOF 06-19 00:15 → CICCU3 06-19 01:53 → CEDOF 06-19 01:53 → CICCU3 06-19 08:09
PROVIDERS: Emergency Medicine; Family Medicine; Internal Medicine; Internal Medicine Cardiovascular Disease
PROC: 0BH17EZ Insertion of Endotracheal Airway into Trachea, Via Natural or Artificial Opening (ICD-10-PCS; principal; 2017-06-18)
PROC: 5A1945Z Respiratory Ventilation, 24-96 Consecutive Hours (ICD-10-PCS; 2017-06-18)
DX: J96.22 Acute and chronic respiratory failure with hypercapnia (principal); I49.01 Ventricular fibrillation; I21.3 ST elevation (STEMI) myocardial infarction of unspecified site; I50.23 Acute on chronic systolic (congestive) heart failure; K72.00 Acute and subacute hepatic failure without coma; G93.1 Anoxic brain damage, not elsewhere classified; I47.2 Ventricular tachycardia; N17.9 Acute kidney failure, unspecified; J96.21 Acute and chronic respiratory failure with hypoxia; I25.10 Atherosclerotic heart disease of native coronary artery without angina pectoris; J44.9 Chronic obstructive pulmonary disease, unspecified; Z99.81 Dependence on supplemental oxygen; Z95.1 Presence of aortocoronary bypass graft; E78.5 Hyperlipidemia, unspecified; Z79.82 Long term (current) use of aspirin; I48.91 Unspecified atrial fibrillation; Z90.49 Acquired absence of other specified parts of digestive tract; E66.9 Obesity, unspecified; Z68.36 Body mass index [BMI] 36.0-36.9, adult; N40.0 Benign prostatic hyperplasia without lower urinary tract symptoms; G47.33 Obstructive sleep apnea (adult) (pediatric); I11.0 Hypertensive heart disease with heart failure; R57.0 Cardiogenic shock
CPT/HCPCS: 36415; 36600; 51702; 70450; 71010; 80048; 80053; 80061; 80076; 81003; 82550; 82553; 82803; 82947; 83735; 83880; 84132; 84484; 85025; 85610; 85730; 86850; 86900; 86901; 92950; 93005; 93306; 94002; 94003; 94760; 95816; 96365; 96366; 96375; 99291; J0171; J0282; J1644; J1953; J2060; J2250; J2270; J2370; J3490